=== PATIENT | female | born 1990 | race Caucasian/White ===

== ENCOUNTER 2018-07-27 17:06 | Emergency (ER) | payer OTHER ==
[~2018-07-27] VITALS: Ht 170.2 cm; Wt 58.1 kg
[~2018-07-27 17:06] MED LIST: [UNRECOGNIZED DRUG - OTHER]
[2018-07-27] MEDS ORDERED: ADDERALL XR 2020 MG PO (17:12)
[2018-07-27 18:29] VITALS: BP 116/56
== END 2018-07-27 18:36 | disposition home or self-care (01) ==
LOC: ER 17:06
DX: S71.112A Laceration without foreign body, left thigh, initial encounter (principal); W26.0XXA Contact with knife, initial encounter; Y93.89 Activity, other specified; Y92.89 Other specified places as the place of occurrence of the external cause; Y99.8 Other external cause status; F90.9 Attention-deficit hyperactivity disorder, unspecified type